=== PATIENT | male | born 2005 | race Caucasian/White ===

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

== ENCOUNTER → 2023-02-06 | Outpatient (CLI) | payer BC ==
[2023-02-06 22:38] LABS: Clam IgE <0.10 kU/L; Peanut IgE 0.26 kU/L; Soybean IgE <0.10 kU/L
[2023-02-07 14:12] LABS: Almond IgE 0.29 kU/L (<0.10); Almond IgE Class CLASS 0/1; Pea(Grn) IgE Class CLASS 0/1
[2023-02-07 14:13] LABS: Cashew IgE <0.10 kU/L (<0.10); Cashew IgE Class CLASS 0; Pistachio IgE Class CLASS 0/1
[2023-02-07 14:15] LABS: Green Bean IgE 0.29 kU/L (<0.10); Green Bean IgE Class CLASS 0/1
== END | disposition home or self-care (01) ==
LOC: LABWHC1 15:12
PROVIDERS: ATTEND Allergy & Immunology
DX: K52.9 Noninfective gastroenteritis and colitis, unspecified (principal); Z91.018 Allergy to other foods
CPT/HCPCS: 36415; 86003